=== PATIENT | male | born 1955 | race Caucasian/White ===

== ENCOUNTER 2017-07-25 14:09 | Outpatient (CLI) | payer OTHER ==
--- NOTE | 2017-07-25 15:03 | RAD ---
RIGHT HIP TWO VIEWS: History: Right hip pain. FINDINGS: There are moderate degenerative changes at the right hip. There is slight loss of femoral head contou r. There is loss of disc space. There is spurring from the femoral head and acetabulum. There are sub chondral cystic changes in the femoral head. Early AVN is not excluded. Consider further evaluation w ith MRI. IMPRESSION: Moderate degenerative changes of the right hip as described. POS: YONIS
== END 2017-07-25 14:10 | disposition home or self-care (01) ==
LOC: TBSIIMAG 14:09
PROVIDERS: ATTEND Neurological Surgery
DX: M54.5 Low back pain (principal); M16.11 Unilateral primary osteoarthritis, right hip